=== PATIENT | female | born 1990 | race Caucasian/White ===

== ENCOUNTER → 2019-03-09 | Outpatient (CLI) | payer BC ==
--- NOTE | 2019-03-09 18:23 | REP ---
Obstetric sonography: History: Supervision of for anatomy. Findings: Scanning through the gravid uterus demonstrates a viable single intrauterine gestation in a cephalic lie. motion is observed and heart rate is recorded at 135 beats per minute. An anterior placenta is seen grade 0 without evidence of previa or abruption. Amniotic fluid is subjectively normal. Closed cervical length measures 4.5 cm, viewed transabdominally. No extrauterine abnormalities observed. There is a small echogenic focus in the left ventricle likely chordae tendineae. No other abnormality is observed. Abdominal wall cord insertion and three-vessel cord are less than optimally seen due to position. The following additional anatomic structures are identified and felt to be unremarkable: cranium, choroid plexus, cavum, cerebellum and posterior fossa, face and profile, lungs, left and right ventricular outflow tract views, diaphragm, left-sided stomach, kidneys, bladder, spine, upper and lower extremities. Biometry chart: BPD 5.2 cm = 21 weeks 6 days HC 20.5 cm = 22 weeks 5 days AC 18.3 cm = 23 weeks 1 day FL 3.8 cm = 22 weeks 2 days HL 3.6 cm = 22 weeks 5 days HC/AC ratio normal 1.12. Cephalic index normal 0.69. Estimated weight 530 grams, 1 pound 2 ounces, 52nd percentile for 22 weeks 4 days. Impression: Viable single intrauterine gestation at 22 weeks 4 days by today's composite sonographic criteria. GERRY by today's criteria July 09, 2019. Echogenic focus in the left ventricle. Abdominal wall cord insertion and three-vessel cord less than optimally visualized. Electronically Signed by Nawaf Adams MD 03/09/2019 08:54 P
== END ==
LOC: M RAD 11:58
PROVIDERS: ATTEND Obstetrics & Gynecology
DX: Z34.80 Encounter for supervision of other normal pregnancy, unspecified trimester (principal); Z3A.21 21 weeks gestation of pregnancy

== ENCOUNTER → 2019-04-11 | Outpatient (CLI) | payer BC ==
--- NOTE | 2019-04-11 09:53 | REP ---
Clinical: Anatomical evaluation. Comparison: 03/09/2019 . Findings: Examination demonstrates a single live intrauterine in cephalic presentation. motion is identified by technologist. Placenta is noted the anterior and grade I without evidence for placenta previa or abruption. A small anechoic area within the placenta likely representing venous hare. Amniotic fluid volume is normal. Cervix measures 4.3 cm in length and appears closed. No evidence for nuchal cord. Gestational age by first US 27 weeks 2 days with GERRY 07/09/2019 . Gestational age by current measurements 27 weeks 0 days with GERRY 07/11/2019 . FHR equals 134 beats per minute. Estimated weight 1077 grams ( 48th percentile). Anatomical assessment demonstrates normal structures including cranium, choroid plexus, cavum, cerebellum/posterior fossa, diaphragm, stomach, cord insertion/three-vessel cord, kidneys/bladder. Impression: 1. Single live intrauterine in cephalic presentation demonstrating appropriate interval growth. In conjunction with prior examination anatomical assessment is complete and normal. 2. Small anechoic avascular area within the placenta measures 3.1 x 3.0 x 1.0 cm and likely represents small venous hare.
[2019-04-11 11:50] LABS: HEMATOCRIT 33.6 % (36.0-47.0); HEMOGLOBIN 11.8 g/dl (12.0-15.5); MEAN CORPUSCULAR HEMOGLOBIN 32.5 pg (27.0-33.0); MEAN CORPUSCULAR HGB CONC 35.1 g/dl (32.0-36.5); MEAN CORPUSCULAR VOLUME 92.6 fl (80.0-96.0); PLATELET COUNT, AUTOMATED 226 10^3/uL (150-450); RED BLOOD COUNT 3.63 10^6/uL (4.00-5.40); WHITE BLOOD COUNT 11.6 10^3/uL (4.0-10.0)
== END ==
LOC: M WHC 08:00
PROVIDERS: ATTEND Obstetrics & Gynecology
DX: Z34.02 Encounter for supervision of normal first pregnancy, second trimester (principal); Z3A.27 27 weeks gestation of pregnancy